=== PATIENT | male | born 1995 | race Caucasian/White ===

== ENCOUNTER → 2019-06-08 | Outpatient (CLI) | payer BC, SELFPAY ==
--- NOTE | 2019-06-08 15:59 | US_ITS ---
HISTORY: Right testicular pain 2 months COMPARISON: None. TECHNIQUE: Realtime wu and color duplex sonography of the testes was performed. # of images incl. paperwork: 95 FINDINGS: The right testis measures 4.6 x 1.8 x 2.5 cm. The left testis measures 4.8 x 1.8 x 2.7 cm. The testes appear normal in size and echotexture without focal mass. There is normal Doppler color flow with normal arterial phasicity and venous flow bilaterally. No evidence of testicular torsion. No evidence for hyperemia. The epididymis appears unremarkable bilaterally without hyperemia. Small left hydrocele. Mild left varicocele. No right hydrocele or varicocele. US/Testicular with Arterial Flow IMPRESSION: 1. Small left hydrocele mild left varicocele. 2. Otherwise, negative testicular ultrasound. at 0308 Reported and signed by: Tal Churchill MD Electronically Signed: Tal Churchill MD at 3:07 EDT Tel , Service support ,
== END | disposition home or self-care (01) ==
LOC: US 15:57
PROVIDERS: Family Provider Internal Medicine; PCP Internal Medicine; Referring Provider Internal Medicine; Visit Provider Internal Medicine
DX: N50.811 Right testicular pain (principal)
CPT/HCPCS: 76870; 93976

== ENCOUNTER → 2022-02-01 | Outpatient (CLI) | payer OTHER, SELFPAY ==
--- NOTE | 2022-02-01 17:55 | MRI_ITS ---
EXAM: MR HEAD WITHOUT AND WITH INTRAVENOUS CONTRAST CLINICAL INDICATION: HYPOGONADISM TECHNIQUE: Multiplanar and multisequence MR images of the brain were obtained without and with intravenous contrast. This report was created using [employer] report generation technology. CONTRAST: IV DOTAREM 15 CC COMPARISON: None. FINDINGS: BRAIN AND EXTRA-AXIAL SPACES: Unremarkable. No intra- or extra-axial hemorrhage. No evidence of acute infarct. No intracranial mass or mass effect. There is preservation of the wu/white matter interface. Posterior fossa structures are unremarkable. Ventricles are appropriate for age. No hydrocephalus. Basal cisterns are patent. SELLA: Unremarkable. Normal sella turcica, pituitary gland, infundibular stalk, optic chiasm and hypothalamus. AUDITORY SYSTEM: Unremarkable. The internal auditory canals are patent. BONES/JOINTS: Unremarkable. No discrete lytic or blastic abnormalities. SINUSES: Unremarkable as visualized. Clear. MASTOID AIR CELLS: Unremarkable as visualized. Clear. ORBITS: Unremarkable as visualized. Both globes, extraocular muscles, optic nerves and retrobulbar fat appear unremarkable. VASCULATURE: Unremarkable as visualized. Normal flow voids in the major intracranial circulation. MRI/Brain W/WO Contrast IMPRESSION: Negative MRI brain without and with intravenous contrast. Electronically Signed: Donnie Patel MD at 8:59 EDT ,
--- NOTE | 2022-02-04 10:36 | RAD.NOTE ---
Staff assist called 02/01/22 approx 18:35 due to pt becoming unresponsive after injection of 15cc Dotarem (Lot# [id number]) with a 22G angiocath. Michael Lozano, Maritza Lee and Osmel Melendez resonded. Pt was placed on MRI monitor and was monitored with BP, SP02, and cardiac leads. Pt refused to be seen in ED. At pts request was given water to which was vomited almost immediately. Michael monitored the pt while the exam was completed without complications. Pt called for a ride, was given a snack and vomited again at approx. 2000. Pt was taken to door and left with brother approx. 2014. Message was left for Radiology Nurse to do a f/u call on Friday02/04/22.
== END | disposition home or self-care (01) ==
LOC: MRI 17:29
PROVIDERS: PCP Internal Medicine; Visit Provider Internal Medicine
DX: E29.1 Testicular hypofunction (principal)
CPT/HCPCS: 70553; A9575

== ENCOUNTER → 2022-05-24 | Outpatient (CLI) | payer OTHER, SELFPAY ==
--- NOTE | 2022-05-24 07:58 | CT_ITS ---
STUDY: CT PELVIS WITH CONTRAST REASON FOR EXAM: Male, 27 years old. Groin pain -- Concentration on Right pelvis RADIATION DOSAGE (If Supplied By Facility): CTDIvol = ( 25.02 ) mGy, DLP = ( 1007.61 ) mGycm TECHNIQUE: Transaxial imaging of the pelvis was performed without oral contrast. IV 100mL Isovue-370 was administered intravenously. Multiplanar coronal and sagittal images were reformatted. Individualized dose optimization techniques were used for this CT. COMPARISON: None. FINDINGS: Normal urinary bladder. I suspect a right-sided hydrocele. Normal visualized small intestine. Normal visualized colon. There is no pelvic fluid. There is no pelvic lymphadenopathy or mass lesion. Normal visualized pelvic arteries. There is a right inguinal hernia containing fat. Normal osseous structures. CT/Pelvis WITH IV Contrast IMPRESSION: I suspect a right sided hydrocele. Small right inguinal hernia containing fat. Electronically Signed: Yoradn Kong MD at 10:22 EDT ,
== END | disposition home or self-care (01) ==
LOC: CT 07:57
PROVIDERS: PCP Internal Medicine; Visit Provider Surgery
DX: R10.30 Lower abdominal pain, unspecified (principal); R10.2 Pelvic and perineal pain
CPT/HCPCS: 72193; Q9967; A4216

== ENCOUNTER 2022-09-02 07:43 | Day surgery (SDC) | payer OTHER, SELFPAY ==
[2022-09-02] VITALS (13 sets, daily range): BP systolic 90–119; BP diastolic 40–72; PULSE 49–75; RESP 16–18; TEMP 36.2–36.9; O2SAT 92–100; BMI 18.8
[2022-09-02] MEDS: Lactated Ringers 1,000 ML 15 ML IV (07:55)
--- NOTE | 2022-09-02 08:27 | PCM.HP.BLA ---
History and Physical Date of Admission: 09/02/22 sit Reasons:?Inguinal Hernia Chief Complaint: Inguinal hernia Bill Collector Required: No Is patient in pain?: Yes Pain scale (1-10): 4 Allergies doxycycline Allergy (Verified 05/16/22 08:02) Swellinglatex Adverse Reaction (Intermediate, Verified 05/16/22 08:02) Othersodium sulfate Adverse Reaction (Intermediate, Verified 05/16/22 08:02) Swelling Medications diphenhydramine HCl 25 mg capsule (Banophen) 25 mg PO TID PRN PRN Pruritis #21 caps 06/01/17 [Rx Confirmed 05/16/22] epinephrine 0.3 mg/0.3 mL injection, auto-injector 0.3 mg (0.3 mL) IM X1 #1 syringe 06/01/17 [Rx Confirmed 05/16/22] famotidine 20 mg tablet 20 mg PO BID #28 TABLETS 06/01/17 [Rx Confirmed 05/16/22] hydrocodone-acetaminophen 5-325mg 5mg-325mg 1 - 2 tab PO Q4H PRN PRN Pain #12 TABLETS 06/15/17 [Rx Confirmed 05/16/22] bacitracin 500 unit/gram topical ointment gm topical 04/16/22 [History Confirmed 05/16/22] cephalexin 500 mg capsule cap PO 04/16/22 [History Confirmed 05/16/22] PFSH Medical History?(Updated 05/16/22 @ 08:19 by Joanna Mtz) Abnormality of hormone Hypogonadism in male Surgical History?(Updated 05/16/22 @ 07:59 by Joanna Mtz) S/P LASIK surgery S/P wisdom tooth extraction Family History? Other Blood clot in vein Seizures Social History?(Updated 05/16/22 @ 08:00 by Joanna Mtz) Smoking Status:? Never smoker alcohol intake:? never substance use type:? does not use HPI HPI HPI: SHERLEY FAM, is a 27 M who presents to the office today for surgical consultation regarding a right inguinal hernia.? The patient is being referred by Dr. Mini Bird and a written copy my surgical consult recommendations will be returned to her.? Patient apparently claims he has had this hernia for at least a year. On inquiring of the patient he sees that he is just had a loss definition of the right lower quadrant area.? He actually points to clinic to the entire right lower quadrant right groin area.? On specific questioning he complains of pain but no actual mass.? He cannot feel a mass or bulge.? There is nothing that he can reduce.? He claims that he has a heaviness occasionally of the testicle.? No fever or chills.? No dysuria.? He has not had knee surgery in the area. ROS General General: No weight change, appetite, fatigue, colon cancer, breast cancer or weakness HEENT HEENT: Yes eye surgery; No difficulty swallowing, eye injury, swollen glands or hoarseness Endo Endocrine: No thyroid disease, diabetes mellitus, thyroid cancer, Hair loss, heat intolerance or cold intolerance Skin Skin: No rash or changing moles Breast Breast: No left breast lump, right breast lump, nipple discharge, breast pain, abnormal mammogram, abnormal US or breast enlargement Musc Musculoskeletal: Yes back problems; No arthritis, rheumatoid arthritis, gout or joint pain Cardio Cardiovascular: No murmur, pacemaker, heart disease, atrial fibrillation, high blood pressure, heart attack, heart stent, palpitations, shortness of breat with exertion or chest pain Psych Psychiatric: No depression, anxiety or hearing voices Resp Respiratory: No shortness of breath, No sleep apnea, No cough, No COPD, No asthma, No emphysema and No wheezing Gastro Gastrointestinal: Yes abdominal pain, No nausea or vomiting, No diarrhea, Yes constipation, No blood in stool, No acid reflux, No hemorrhoids, No ulcers, No gallbladder problem and No black,tarry stools Zev Hematologic: No blood thinners, No blood disorders, No bleeding, No anemia and No blood clots Neuro Neurologic: No system reviewed and no additional complaints, except as documented, No as per HPI, No abnormal gait, No abnormal hearing, No abnormal movements, No abnormal speech, No behavioral changes, No burning sensations, No confusion, No convulsions, No disequilibrium, No dizziness, No localized weakness, No frequent falls, No headache(s), No lack of coordination, No loss of vision, No memory loss, No numbness, No other visual disturbances, No radicular pain, No restless legs, No sensory deficit, No syncope, No tingling, No tremor(s), No weakness and No other Exam Other: There is just a slight billowing of the right groin area as compared to the left.? Testicles are descended bilaterally without mass.? No obvious varicoceles.? The left external ring very tight and intact.? The right internal ring possibly just a slight defect.? The patient is very slender, a gross inguinal defect not identified Assessment and Plan Assessment and Plan (1) Groin pain: ?Status:?Acute ? ? ? Orders: Orders Pelvis WITH IV Contrast Today R10.30 - Lower abdominal pain, unspecified ? Plan Slight billowing of the right groin area.? Possibly the start of a direct hernia but clinical findings are mild.? Classic indirect hernia not identified.? Recommend that we obtain a CT of the groin area.? Is not clear to me whether this actually is a hernia or just a musculoskeletal strain.? Other possibilities would include varicocele for his discomfort.? It is always possible that he has a sports hernia. In detail I discussed with him treatment options.? States that he has had a change of bowel habits and I think I can definitively tell him that this is absolutely not related to this slight billowing of the right groin area. He has had an opportunity ask and have questions answered.? We will obtain a CT and notify him of results.? The patient then will be able to decipher whether proceeding with a right inguinal hernia repair would offer him value at that point an attempt to fix a sports hernia or whether he would want to continue to take a conservative approach I appreciate the opportunity of assisting with surgical care. Copy: Dr. Mini Patterson M.D., F.A.C.S. May 24, 2022 STUDY:? CT PELVIS WITH CONTRAST REASON FOR EXAM: ? Male, 27 years old.? Groin pain -- Concentration on Right pelvis RADIATION DOSAGE (If Supplied By Facility):? CTDIvol = ( 25.02 ) mGy, DLP = ( 1007.61 ) mGycm TECHNIQUE: ? Transaxial imaging of the pelvis was performed without oral contrast.? IV 100mL Isovue-370 was administered intravenously.? Multiplanar coronal and sagittal images were reformatted. Individualized dose optimization techniques were used for this CT. COMPARISON: ? None. FINDINGS: Normal urinary bladder.? I suspect a right-sided hydrocele. Normal visualized small intestine.? Normal visualized colon. There is no pelvic fluid.? There is no pelvic lymphadenopathy or mass lesion. Normal visualized pelvic arteries. There is a right inguinal hernia containing fat.? Normal osseous structures. CT/Pelvis WITH IV Contrast IMPRESSION: I suspect a right sided hydrocele. ? Small right inguinal hernia containing fat. ? Electronically Signed: Yordan Kong MD at 10:22 EDT , The patient history and physical was reviewed again today. He states 1 week ago he had food poisoning with nausea and vomiting causing him to have right groin pain. He can have pain in the right groin or in the right testicle scrotal area are all the way up to the right rib cage area. He never has to reduce a mass or a bulge. He states that after the food poisoning that he is completely recovered. Currently denies any nausea or vomiting denies any fever no shortness of breath. No change in bowel habits. Physical exam was again reviewed. Of most pertinence as I do not detect a right testicular mass I do not detect hydrocele or varicoceles. He is very slender and there is just a very slight given the right groin. I have discussed with him laparoscopic right inguinal hernia repair. He is aware of the technique, benefit, risk, alternatives. He is aware that mesh will be utilized. He is very much aware that I am not offering him a guaranteed result of complete resolution of all of his pain symptoms. He has had an opportunity to ask and have questions answered. We will pursue repair at his direction. Dandre Patterson M.D., F.A.C.S.
[2022-09-02] MEDS: Bupivacaine 0.25% 30 ML Vial (08:47)
--- NOTE | 2022-09-02 08:55 | DCINST_ITS ---
Discharge Instructions Procedure General Surgery Diet Discharge Diet: Light diet - advance as tolerated (if you have questions about your diet instructions, please talk to you doctor.) Activity Discharge Activity: May Not Drive (for 3-5 days or while taking narcotic pain medicine.) May shower in (days): 1 Lifting Restrictions: 10 pounds Dressing / Incision Call your doctor if your incision/area has: Continuous Slow Oozing, Sudden Increased Bleeding, Increased Pain/ Swelling, Increased Redness and Foul Smelling Discharge Call your doctor if you observe: Fever of 101 or Higher Suture Line Care: Avoid Pulling/Pushing and Avoid Pinching/Bending Additional Dressing/Incision Instructions:: Change or remove dressing in 4 days. Leave steri-strips in place for 1 week. Follow Up Care Please Follow Up With: Dandre Patterson MD When: Call [phone] to make an appointment to be seen in about 10 days. Test Results: Test results from this visit will be discussed in further detail at your follow- up appointment, if applicable. Discharge Plan Admission Attending Provider: Dandre Patterson Primary Care Provider: Mini Bird Discharge Orders/Prescriptions Prescriptions: No Action NK Referrals / Follow Up: Mini Bird, DO [Primary Care Provider] - Disposition Disposition (needs filled in before D/C Order can be placed): Home, Self Care
[2022-09-02] MEDS: Cefazolin 2 GM in 0.9% Normal Saline 100 ML IV (08:56)
--- NOTE | 2022-09-02 10:07 | OP.PCM_ITS ---
Report of Operation Date of Procedure: 09/02/22 Pre-Operative Diagnosis: Right groin pain and small indirect inguinal hernia Post-Operative Diagnosis: Same Surgery/Procedure Performed:: Laparoscopic right inguinal herniorrhaphy Bard 3D max large right mesh. Lot [id number], reference [id number], expiry date 12/31/2026 Description of Surgical Findings:: Timeout and informed consent was obtained. 27-year-old gentleman was taken to the operating placed upon the table underwent general endotracheal intubation esthesia. Ancef 2 g were given to immensely. The abdomen sterilely prepped and draped. 0.25% Marcaine was used as a local anesthetic. Throughout the procedure a total of 30 cc was used. Skin sites were reanesthetized. A vertical infraumbilical incision was created holding sutures of 0 Vicryl placed varies needle inserted saline drop test performed the abdomen was insufflated with CO2 to a pressure of 10 mmHg pressure. 10 mm trocar inserted. 5 mm trochars were placed in the right left lower quadrant and direct visitation. Left groin noted to be solid intact right groin appeared to have a very small indirect defect. A ilioinguinal nerve block was performed with the Marcaine under laparoscopic visualization. It is of note that a laparoscopic exploration of the right groin right lower quadrant right mid abdomen and right upper quadrant was performed. Gallbladder appeared to be unremarkable as did the ascending colon. The appendix appeared to be of normal size and there were no signs of inflammation. What was visualized the terminal ileum was unremarkable as well. The peritoneum superior lateral to the internal ring was incised carried medially the peritoneum was then carefully and tediously dissected free until the direct space indirect space and femoral area were clearly identified. Great care was taken to preserve neurovascular function bundles. The vas deferens was identified and carefully dissected free from the peritoneum to allow for complete release of the peritoneum. Small amount of fibrofatty tissue was reduced from the small indirect defect. A large right Bard 3D max mesh was then placed does cover the direct indirect and femoral area and was secured in place laterally superiorly a nd medially with secure strap. Very good positioning was achieved to cover all 3 areas. The peritoneum was then approximated to itself with secure strap completely obliterating access to the mesh. Trochars removed after the abdomen was allowed to deflate through an antiviral valve. The fascia at the umbilicus approximated opted 0 Vicryl [id number] suture. Skin edges approximated opted for Monocryl subdermal stitches. Steri-Strips Telfa OpSite dressings applied. Sponge and instrument and needle counts were reported to the surgeon to be correct. Specimens none. Drains none. Blood loss minimal. The patient was taken to the recovery room in status condition without apparent complication. Dandre Patterson M.D., F.A.C.S. Surgeon: Dandre Patterson Type of Anesthesia: General and Local Anesthesiologist: Stevie Merchant
[2022-09-02] MEDS: HYDROcodone Bitartrate/Apap 5/325 Tablet PO (12:44)
[2022-09-02] MEDS: LACTATED RINGERS 500 ML 999 ML IV (15:50)
== END 2022-09-02 17:04 | disposition home or self-care (01) ==
LOC: SDC 07:48 → AC 07:48
PROVIDERS: PCP Internal Medicine; Referring Provider Surgery; Visit Provider Surgery
PROC: (CPT 49650; principal; 2022-09-02 09:40)
DX: K40.90 Unilateral inguinal hernia, without obstruction or gangrene, not specified as recurrent (principal); Z79.899 Other long term (current) drug therapy
CPT/HCPCS: 49650; 00840; J7120; C1781; J2405

== ENCOUNTER → 2023-07-28 | Outpatient (CLI) | payer OTHER, SELFPAY | END | disposition home or self-care (01) | PROVIDERS: PCP Internal Medicine; Referring Provider Nurse Practitioner; Visit Provider Nurse Practitioner | DX: Z91.038 Other insect allergy status (principal) | CPT/HCPCS: 36415; 83520 ==